=== PATIENT | female | born 1995 | race Caucasian/White ===

== ENCOUNTER → 2017-03-25 | Outpatient (REF) | LOC: WSOH 12:15 | DX: Z02.89 Encounter for other administrative examinations (principal) ==

== ENCOUNTER → 2017-04-08 | Outpatient (CLI) | payer BC | LOC: COL.CARD 15:51 | DX: R00.2 Palpitations (principal); R00.0 Tachycardia, unspecified ==

== ENCOUNTER 2022-02-19 21:00 | Outpatient (CLI) | payer OTHER ==
[~2022-02-19] VITALS: Ht 160 cm; Wt 111.4 kg
[2022-02-19 21:40] VITALS: TEMP 98.1
[2022-02-19 21:45] VITALS: BP 137/91; PULSE 83
[2022-02-19 22:15] VITALS: BP 125/73; PULSE 68
--- NOTE | 2022-02-19 22:30 | NUR ---
PT REQUESTED TO SIT ON A BIRTHING BALL. SHE DOESN'T LIKE THE BED.
--- NOTE | 2022-02-19 23:15 | NUR ---
DR DELGADILLO NOTIFIED OF PT'S COMPLAINTS, UC'S, BP, FHR, VS. PT MAY GO HOME WITH DISCHARGE INSTRUCTIONS.
--- NOTE | 2022-02-19 23:25 | NUR ---
PT WAS GIVEN WRITTEN AND VERBAL DISCHARGE INSTRUCTIONS AND TO REST, DRINK LOTS OF WATER. PT VERBALIZED UNDERSTANDING. PT SIGNED DISCHARGE INSTRUCTIONS AND LEFT THE UNIT AMB OUT WITH SPOUSE.
== END 2022-02-19 23:53 | disposition home or self-care (01) ==
LOC: LDRO 21:00
DX: O62.9 Abnormality of forces of labor, unspecified (principal); Z3A.00 Weeks of gestation of pregnancy not specified

== ENCOUNTER 2022-02-24 11:29 | Inpatient (IN) | payer OTHER ==
[~2022-02-24] VITALS: Ht 160 cm; Wt 112.8 kg
[2022-02-24] VITALS (34 sets, daily range): BP systolic 102–133; BP diastolic 58–87; PULSE 60–111; TEMP 98–98.7
--- NOTE | 2022-02-24 12:00 | NUR ---
611370.6, G1LO arrives on unit from clinic for iol. Ambulatory to ldr3 with spouse. Oriented to room and plan of care. Changes into clean gown. Clean catch ua collected. Reports normal movement and irregular contractions. Denies any lof or vb. 1215EFM explained and placed. VS obtained. Assessment completed. 1224IV to left wrist. Labs obtained. IVF infusing. Consent forms explained and signed. 1237Pitocin explained and started per protocol. 1300Dr. Barr to bedside. Plan of care reviewed with patient and spouse who verbalize understanding. AROM by Dr. Barr for large amount of clear amniotic fluid. SVE 5/-1 per provider. Nafisa care provided, and pt wedge left. Questions invited and answered. Pt resting with call light within reach.
[2022-02-24 12:42] LABS: COLLECTION METHOD CLEAN CATCH
[2022-02-24 12:49] LABS: BASO % 0.2 % (0.0-2.0); EOS % 0.1 % (0.0-4.0); GRAN # 10.6 K/mm3 (1.4-6.5); GRAN % 81.2 % (42.2-75.2); HEMATOCRIT 37.1 % (37.0-47.0); HEMOGLOBIN 12.4 g/dl (12.5-16.0); LYMPH # 1.5 K/mm3 (1.2-3.4); LYMPH % 11.3 % (20.0-51.0); MEAN CELL VOLUME 88 fl (80.0-100.0); MEAN CORPUSCULAR HEMOGLOBIN 29 pg (27-31); MEAN CORPUSCULAR HGB CONC 33 g/dl (33.0-37.0); MEAN PLATELET VOLUME 9.8 fl (7.4-10.4); MONO # 0.8 K/mm3 (0.1-0.6); PLATELET COUNT 245 K/mm3 (130-400); RED BLOOD COUNT 4.23 M/mm3 (4.10-5.30); REDCELL DISTRIBUTION WIDTH-CV 13.2 % (11.5-14.5)
[2022-02-24] MEDS ORDERED: QUALITY CHOICE1 TA7 (12:51)
[2022-02-24] MEDS ORDERED: LEXAPRO20 MG PO (12:51)
[2022-02-24] MEDS ORDERED: SYNTHROID0.075 MG/T PO (12:51)
[2022-02-24] MEDS ORDERED: PROTONIX20 MG PO (12:52)
[2022-02-24] MEDS ORDERED: COLACE 100100 MG/CAP PO (12:52)
[2022-02-24] MEDS ORDERED: GLUCOPHAGE500 MG/TAB PO (12:53)
[2022-02-24 12:55] LABS: URINE BACTERIA Rare /hpf (NONE SEEN); URINE RBC 0-2 /hpf (0-2)
[2022-02-24 12:56] LABS: URINE APPEARANCE Clear (CLEAR/HAZY); URINE COLOR Yellow (YELLOW); URINE GLUCOSE Negative (NEGATIVE); URINE PROTEIN(semi-quant) Negative (NEGATIVE)
[2022-02-24 12:57] LABS: URINE BLOOD 3+ (NEGATIVE); URINE KETONE 3+ (NEGATIVE); URINE NITRATE Negative (NEGATIVE); URINE UROBILINOGEN 0.2 E.U/dL (0.2-1.0)
[2022-02-24 13:01] LABS: ALBUMIN 2.9 gm/dL (3.5-5.0); BILIRUBIN,TOTAL 0.3 mg/dL (0.2-1.2); CALCIUM 8.9 mg/dL (8.4-10.2); CREATININE, serum 0.88 mg/dL (0.57-1.11); TOTAL PROTEIN 6.1 gm/dL (6.2-8.1)
--- NOTE | 2022-02-24 13:25 | NUR ---
1325Patient requesting epidural. Dandre Gloria CRNA notified. LR bolus infusing. Pt to bathroom to void. 1335Pt sitting on edge of bed for epidural placement. FHR tracing intermittently due to maternal position and habitus. RN remains at bedside adjusting efm. 1341Epidural placed and single shot at this time by Dandre Gloria CRNA. 1346Patient wedge left. EFM adjusted and tracing well. Plan of care and safety precautions reviewed with patient who verbalizes understanding. Resting with call light within reach.
--- NOTE | 2022-02-24 14:25 | NUR ---
1425Catheter placed. SVE /-1. Bilat side lying hip release.
--- NOTE | 2022-02-24 16:06 | NUR ---
1606Dr. Barr to pt bedside. SVE per provider /0. Nafisa care provided and patient high russell, knees closed. Plan of care reviewed with pt who verbalizes understanding.
--- NOTE | 2022-02-24 17:37 | NUR ---
1737SVE 10cm per Dr. Barr. 1743Catheter removed, fito care provided. Patient instructed on pushing with contractions. Patient begins to push with contractions with Dr. Barr and RN at bedside. Strong maternal effort. Moves vertex well. 1811Spontaneous vaginal delivery of viable male infant. To mother's chest where dried and stimulated by nursery RN. Pitocin paused. Cord clamped x2 and cut by father of . Care of assumed by Dino Ramon RN. 1813Spontaneous and intact delivery of placenta. Pitocin to 333ml/hr per protocol. Second degree perineal laceration repaired by Dr. Barr. 1815Report to Mahi Robledo RN who assumes care of patient.
[2022-02-24] MEDS ORDERED: MOTRIN 800800 MG/TAB PO (18:54)
[2022-02-25 01:00] VITALS: BP 104/52; PULSE 65; TEMP 98.7
[2022-02-25 05:00] VITALS: BP 115/75; PULSE 74; TEMP 97.9
[2022-02-25 07:28] VITALS: BP 122/64; PULSE 82; TEMP 98
--- NOTE | 2022-02-25 09:57 | NUR ---
Initial visit; Parents thanked [employer] for offering congratulations and God's blessings for the of their son. [employer] thanked family for choosing [facility].
[2022-02-25 12:59] VITALS: BP 116/77; PULSE 67; TEMP 97.7
[2022-02-25 15:04] VITALS: BP 107/66; PULSE 62; TEMP 98.2
[2022-02-25 18:50] VITALS: BP 116/61; PULSE 73; TEMP 98.4
[2022-02-26 07:00] VITALS: BP 117/71; PULSE 59; TEMP 97.8
== END 2022-02-26 13:30 | disposition home or self-care (01) | DRG 807 ==
LOC: LDR 11:29 → OB 11:54
PROVIDERS: ADMIT Obstetrics & Gynecology
PROC: 10E0XZZ Delivery of Products of Conception, External Approach (ICD-10-PCS; principal; 2022-02-24)
PROC: 0KQM0ZZ Repair Perineum Muscle, Open Approach (ICD-10-PCS; 2022-02-24)
PROC: 10907ZC Drainage of Amniotic Fluid, Therapeutic from Products of Conception, Via Natural or Artificial Opening (ICD-10-PCS; 2022-02-24)
PROC: 3E033VJ Introduction of Other Hormone into Peripheral Vein, Percutaneous Approach (ICD-10-PCS; 2022-02-24)
DX: O13.4 Gestational [pregnancy-induced] hypertension without significant proteinuria, complicating childbirth (principal); Z37.0 Single live birth; O99.214 Obesity complicating childbirth; O70.1 Second degree perineal laceration during delivery; O24.425 Gestational diabetes mellitus in childbirth, controlled by oral hypoglycemic drugs; O99.284 Endocrine, nutritional and metabolic diseases complicating childbirth; O99.343 Other mental disorders complicating pregnancy, third trimester; F41.9 Anxiety disorder, unspecified; F32.A Depression, unspecified; Z3A.38 38 weeks gestation of pregnancy
CPT/HCPCS: J2210; J2405; J2590; J7120